=== PATIENT | male | born 1945 | race Caucasian/White ===

== ENCOUNTER 2018-10-17 09:20 | Day surgery (SDC) | payer MEDICARE, OTHER ==
[~2018-10-17] VITALS: Ht 167.6 cm; Wt 63.7 kg
[2018-10-17] VITALS (13 sets, daily range): BP systolic 128–151; BP diastolic 67–77; PULSE 62–87; RESP 0–18; Ht 167.6 cm; Wt 63.7 kg
[~2018-10-17 09:20] MED LIST: ACET-141 PO; ACET-2047 PO; AMLO5TAB4 PO; ASPI-716; ASPI81TA52 PO; ATOR20TA38; ATOR20TA38 PO; BISA10SU55 RC; CARV3.1260; CARV3.1260 PO; CILO100T PO; CRAN3875 PO; CRAN450C PO; DOCU-159 PO; FLOMAX PO; GABA300C16 PO; HYDR-1666 PO; LISI2.5T59; MAGN400O19 PO; MELA3TAB17 PO; METF100010 PO; NA P133E39 RC; NICO-544 TD; NOVO3I SC; ONDA4TAB8 PO; PANT40TA3 PO; PIOG30TA12; SITA100T11 PO; SITA1TAB7 PO; TAMS-14 PO; TICA90TA; TICA90TA PO; UDMYL PO
[2018-10-17] MEDS ORDERED: HEPARIN 1000 UNITS/ML 10 ML INJ ONE (10:52)
[2018-10-17] MEDS ORDERED: LIDOCAINE 1% (MDV) 20 ML INJ ONE (10:52)
[2018-10-17] MEDS ORDERED: FENTAnyl 50 MCG/ML VIAL ONE (10:52)
[2018-10-17] MEDS ORDERED: VERAPAMIL 5 MG INJ ONE (10:52)
[2018-10-17] MEDS ORDERED: MIDAZOLAM 1 MG/ML 2 ML INJ ONE (10:52)
[2018-10-17] MEDS ORDERED: NITROGLYCERIN (IC) 100 MCG/ML INJ ONE (10:52)
[2018-10-17] MEDS ORDERED: IODIXANOL LOCM 100 ML BTL ONE (10:52)
[2018-10-17] MEDS ORDERED: SOD CHLORIDE 0.9% 1,000 ML IV SCH ×2 (11:00→12:00)
[2018-10-17] MEDS ORDERED: morphine 2 MG INJ IV PRN (12:00)
[2018-10-17] MEDS ORDERED: ACETAMINOPHEN 325 MG TAB PO PRN (12:00)
[2018-10-17] MEDS ORDERED: AL HYDROX/MG HYDROX/SIMETH 30 ML CUP PO PRN (12:00)
[2018-10-17] MEDS ORDERED: ONDANSETRON 4 MG INJ IV PRN (12:00)
== END 2018-10-17 18:03 | disposition home or self-care (01) ==
LOC: CCL 09:20
PROVIDERS: ATTEND Internal Medicine
DX: I25.10 Atherosclerotic heart disease of native coronary artery without angina pectoris (principal); I10 Essential (primary) hypertension; E11.9 Type 2 diabetes mellitus without complications; E78.5 Hyperlipidemia, unspecified
CPT/HCPCS: 71045; 82962; 85610; 85730; 93005; 93458; C1887; C1894; J1644; J2250; J3010; Q9967